=== PATIENT | female | born 1980 | race Two or more races ===

== ENCOUNTER 2023-02-07 01:48 | Inpatient (IN) | payer MEDICAID ==
[~2023-02-07] VITALS: Ht 165.1 cm; Wt 68.1 kg
[2023-02-07 02:19] LABS: Basophils # (auto) 0.1 10 ^3/uL (0-0.2); Basophils % (auto) 0.6 % (0.0-2.0); Eosinophils # (auto) 0.2 10 ^3/uL (0-0.8); Eosinophils % (auto) 1.6 % (0.0-7.0); Hematocrit 43.9 % (36.0-46.0); Hemoglobin 14.7 g/dL (12.2-16.2); Lymphocytes % (auto) 26.1 % (10.0-50.0); Mean Corpuscular Hgb Conc. 33.5 g/dL (32.0-36.0); Mean Corpuscular Volume 92.5 fL (80.0-100.0); Monocytes # (auto) 0.8 10 ^3/uL (0-1.3); Monocytes % (auto) 7.2 % (0.0-12.0); Neutrophils # (auto) 7.4 10 ^3/uL (1.6-8.6); Neutrophils % (auto) 64.5 % (37.0-80.0); Nucleated Red Blood Cells % 0.1 %; Red Blood Cells 4.75 10^6/uL (4.0-5.20); White Blood Cell 11.5 10^3/uL (4.4-10.8)
[2023-02-07 02:37] LABS: INR 1.03 (0.9-1.15); Partial Thromboplastin Time 25.9 sec (24.6-33.4)
[2023-02-07 02:38] LABS: Albumin 4.1 g/dL (3.4-5.0); BUN/Creatinine Ratio 21.7 (10.0-20.0); Calcium 9.6 mg/dL (8.5-10.1); Magnesium 2.2 mg/dL (1.6-2.6); Potassium 3.6 mmol/L (3.5-5.1)
[2023-02-07 02:41] LABS: Lactic Acid w/Reflex 7.1 mmol/L (0.4-2.0)
[2023-02-07 02:41] LABS: Bilirubin, Total 1.4 mg/dL (0.2-1.0); Total Protein 7.3 g/dL (6.4-8.2)
[2023-02-07] MEDS ORDERED: ACETAMINOPHEN 325 MG TAB PO ONE (03:30)
[2023-02-07 03:46] LABS: Urine Bacteria FEW /hpf (None Seen); Urine Blood TRACE /uL (Negative); Urine Hyaline Cast FEW /lpf (0 - 2); Urine Specific Gravity 1.019 (1.001-1.035); Urine WBC 6 /hpf (0 - 5)
[2023-02-07 04:08] LABS: Alcohol, Urine < 3.0 mg/dL (0-10); Amphetamine Screen, Urine NEGATIVE (NEGATIVE); Barbiturate Scree,Urine NEGATIVE (NEGATIVE); Benzodiazephine Screen, Urine NEGATIVE (NEGATIVE); Cannabinoid Screen, Urine POSITIVE (NEGATIVE); Cocaine Screen, Urine NEGATIVE (NEGATIVE); Opiate Scree,Urine POSITIVE (NEGATIVE); Phencyclidine Screen, Urine NEGATIVE (NEGATIVE)
[2023-02-07] MEDS ORDERED: SODIUM CHLORIDE 0.9% 1,000 ML IV ONE (04:30)
[2023-02-07] MEDS ORDERED: cefTRIAXone 1GM/50ML D5W 50 ML IV ONE (04:30)
[2023-02-07] MEDS ORDERED: PANTOPRAZOLE 40 MG/10 ML VIAL INJ IV ONE (09:15)
[2023-02-07] MEDS ORDERED: SODIUM CHLORIDE 0.9% 1,000 ML IV SCH (09:15)
[2023-02-07] MEDS ORDERED: ACETAMINOPHEN 325 MG TAB PO PRN (09:15)
[2023-02-07] MEDS ORDERED: ONDANSETRON HCL 4 MG/2 ML VIAL IV PRN (09:15)
[2023-02-07] MEDS ORDERED: FOLIC ACID 1 MG TAB PO ONE (10:00)
[2023-02-07] MEDS ORDERED: NITROGLYCERIN 0.4 MG SL TAB SL PRN (10:00)
[2023-02-07] MEDS ORDERED: THIAMINE HCL 100 MG TAB PO ONE (10:00)
[2023-02-07] MEDS ORDERED: ENOXAPARIN SOD 40 MG/0.4 ML SYRINGE SC SCH (10:00)
[2023-02-07] MEDS ORDERED: MORPHINE SULFATE INJ 2 MG/ml SYRG IV PRN (10:00)
[2023-02-07] MEDS ORDERED: MULTIPLE VITAMIN TAB PO ONE (10:00)
[2023-02-07] MEDS ORDERED: LORazepam 2MG/ML-1ML VIAL IV PRN ×2 (10:15)
[2023-02-07] MEDS ORDERED: ALPRAZolam 0.25 MG TAB PO PRN (10:15)
[2023-02-07 17:00] VITALS: BP 118/63
[2023-02-08] MEDS ORDERED: cefTRIAXone 1GM/50ML D5W 50 ML IV SCH (09:00)
[2023-02-08] MEDS ORDERED: PANTOPRAZOLE 40 MG/10 ML VIAL INJ IV SCH (10:00)
[2023-02-08] MEDS ORDERED: THIAMINE HCL 100 MG TAB PO SCH (10:00)
[2023-02-08] MEDS ORDERED: FOLIC ACID 1 MG TAB PO SCH (10:00)
[2023-02-08] MEDS ORDERED: CITALOPRAM HYDROBR 20 MG TAB PO SCH (10:00)
[2023-02-08] MEDS ORDERED: MULTIPLE VITAMIN TAB PO SCH (10:00)
== END 2023-02-07 17:16 | disposition left against medical advice (07) | DRG 53 ==
LOC: ER 01:48 → EDUNIT# 01:48 → ER 03:01 → OVERFLOW 09:10 → TELE 09:56
PROVIDERS: ADMIT Nurse Practitioner Family; ATTEND Nurse Practitioner Family
DX: G40.409 Other generalized epilepsy and epileptic syndromes, not intractable, without status epilepticus (principal); G93.41 Metabolic encephalopathy; E87.20 Acidosis, unspecified; F17.200 Nicotine dependence, unspecified, uncomplicated; Z53.29 Procedure and treatment not carried out because of patient's decision for other reasons; Z20.822 Contact with and (suspected) exposure to COVID-19; F41.0 Panic disorder [episodic paroxysmal anxiety]; N39.0 Urinary tract infection, site not specified; Z79.899 Other long term (current) drug therapy; Z81.8 Family history of other mental and behavioral disorders; Z83.3 Family history of diabetes mellitus
CPT/HCPCS: 36415; 70450; 70551; 71045; 80053; 80307; 80320; 81001; 83605; 83735; 84484; 85025; 85610; 85730; 87040; 87426; 93005; 96361; 96365; 99291; G0378; J0696